=== PATIENT | male | born 1995 | race Two or more races ===

== ENCOUNTER 2021-10-20 23:07 | Emergency (ER) | payer SELFPAY ==
[~2021-10-20] VITALS: Ht 167.6 cm; Wt 79.5 kg
[2021-10-20 23:10] VITALS: BP 143/90
[2021-10-20] MEDS ORDERED: ACET325T9 PO (23:21)
[2021-10-20] MEDS ORDERED: IBUP-1027 PO (23:21)
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
[2021-10-20] MEDS ORDERED: IBUPROFEN 400 MG TABLET. PO ONE (23:30)
[2021-10-20] MEDS ORDERED: ACETAMINOPHEN 325 MG TABLET. PO ONE (23:30)
== END 2021-10-21 | disposition home or self-care (01) ==
LOC: ER 23:07
DX: S09.93XA Unspecified injury of face, initial encounter (principal); Y08.89XA Assault by other specified means, initial encounter; Y93.89 Activity, other specified; Y92.89 Other specified places as the place of occurrence of the external cause; Y99.8 Other external cause status
CPT/HCPCS: 99282; 99283